=== PATIENT | male | born 1935 | race Caucasian/White ===

== ENCOUNTER 2018-10-29 08:45 | Observation (INO) ==
[2018-10-29] MEDS ORDERED: ASPIRIN PO ONE (08:49)
[2018-10-29 09:07] LABS: BASO# 0.03 X1000 (0.0-0.2); BASO% 0.3 % (0.0-0.8); EOS# 0.03 X1000 (0.0-0.7); EOS% 0.3 % (0.0-10.0); HEMATOCRIT 45.2 % (42.0-52.0); HEMOGLOBIN 15.2 g/dL (14.0-18.0); IMM GRAN# 0.02 X1000 (0.0-0.04); IMM GRAN% 0.2 % (0.0-0.5); LYMPH# 1.73 X1000 (1.2-3.4); MCH 30.3 PG (27-31); MCHC 33.6 g/dL (33-37); MONO# 0.88 X1000 (0.11-0.59); MONO% 8.1 % (1.7-9.3); MPV 11.9 FL (7.4-10.4); NEUT# 8.15 X1000 (1.4-6.5); NEUT% 75.1 % (42.2-75.2); PLT 159 X1000 (130-400); RBC 5.02 XMIL (4.7-6.1); RDW 13.9 % (11.5-14.5); WBC 10.84 X1000 (4.8-10.8)
[2018-10-29 09:24] LABS: ALBUMIN 4.4 g/dL (3.5-5.0); CALCIUM 8.7 mg/dL (8.8-10.2); CREATININE 1.2 mg/dL (0.7-1.2); POTASSIUM 4.5 mmol/L (3.5-5.1); TOTAL BILIRUBIN 1.6 mg/dL (0.20-1.00); TOTAL PROTEIN 6.6 g/dL (6.3-8.3)
[2018-10-29 09:25] LABS: INR 0.88; PROTIME 12.4 Seconds (11.0-16.0)
[2018-10-29 09:26] LABS: PTT 22.9 Seconds (22.3-41.8)
--- NOTE | 2018-10-29 09:57 | Diag Imaging Result Doc PS360 ---
EXAM: CHEST-2 VIEWS HISTORY: syncopy TECHNIQUE: PA and Lateral chest x-ray COMPARISON: None. FINDINGS: There is cardiomegaly. The pulmonary vasculature is not congested. No infiltrate, effusion, or pneumothorax is appreciated. There are moderate degenerative changes about the bilateral acromioclavicular joints. IMPRESSION: No acute cardiopulmonary abnormality is identified. Electronically signed by Valery Ramsey 10/29/2018 9:54 AM
[2018-10-29] MEDS ORDERED: CATAPRES PO ONE (10:23)
[2018-10-29] MEDS ORDERED: NORVASC PO ONE (10:23)
[2018-10-29] MEDS ORDERED: PRINIVIL PO ONE (10:24)
--- NOTE | 2018-10-29 10:31 | EKG Report ---
Test Performed on : 10/29/2018 08:47:31 AM Test Reason : syncopy Blood Pressure : / mmHG Vent. Rate : 059 BPM Atrial Rate : 059 BPM P-R Int : 208 ms QRS Dur : 084 ms QT Int : 420 ms P-R-T Axes : 062 -04 030 degrees QTc Int : 415 ms Sinus bradycardia. Left ventricular hypertrophy with repolarization abnormality Abnormal ECG No previous ECGs available Unconfirmed Result
--- NOTE | 2018-10-29 12:44 | Diag Imaging Result Doc PS360 ---
EXAM: CT ANGIOGRM PULMONARY ARTERIES HISTORY: chest pain TECHNIQUE: Images were obtained from the lung apices through bases as per standard protocol. This exam was performed using automated exposure control, adjustment of mA or kV according to patient size, and/or use of iterative reconstruction technique. COMPARISON: None. FINDINGS: Pulmonary artery: . Suboptimal distal arterial opacification. No proximal filling defects are appreciated. There is no evidence for acute pulmonary embolism embolism. Mediastinum: There is cardiomegaly. No pericardial effusion is appreciated. No pathologically enlarged lymph nodes are identified. No aortic aneurysm. There is no evidence for aortic dissection. No hilar lymphadenopathy. There are calcified left hilar lymph nodes Airway: No large airway obstruction. No focal mass. Pulmonary parenchyma: There are dependent changes. No masses are appreciated. No bronchiectasis. No focal infiltrates. Pleura: There are no pleural effusions. Bones: No fracture or destructive lesion is identified. There is degenerative arthropathy thoracic spine no acute fractures are identified. Images of the abdomen reveal a probable cortical cyst right kidney which is only partially visualized. IMPRESSION: No evidence for acute pulmonary embolism or other acute intrathoracic abnormality. Electronically signed by Valery Ramsey 10/29/2018 12:42 PM
[2018-10-29] MEDS ORDERED: NS 1,000 ML IV ONE ×2 (13:13→15:02)
--- NOTE | 2018-10-29 13:23 | EKG Report ---
Test Performed on : 10/29/2018 11:28:36 AM Test Reason : repeat Blood Pressure : / mmHG Vent. Rate : 068 BPM Atrial Rate : 068 BPM P-R Int : 198 ms QRS Dur : 084 ms QT Int : 396 ms P-R-T Axes : 094 -04 027 degrees QTc Int : 421 ms Normal sinus rhythm. Left ventricular hypertrophy with repolarization abnormality Cannot rule out Septal infarct , age undetermined Abnormal ECG When compared with ECG of 29-OCT-2018 08:47, (Unconfirmed) No significant change was found Unconfirmed Result
[2018-10-29] MEDS ORDERED: G.I. COCKTAIL PO ONE (14:36)
--- NOTE | 2018-10-29 14:58 | PROVIDER DOCUMENTATION ---
This chart was entered by Sabiha Dyson Scribe, acting as scribe for Cristóbal Tomlinson MD. HPI-Syncope/Dizziness - General Chief Complaint: Syncope Stated Complaint: syncope Time Seen by Provider: 10/29/18 10:08 Source: patient, family (daughter) Allergies/Adverse Reactions: Patient Allergies Allergy/AdvReac Type Severity Reaction Status Date / Time No Known Allergies Allergy Verified 10/29/18 08:53 Home Medications: Home Medication List Medication Instructions Recorded Confirmed Last Taken Type Amlodipine [Norvasc] 5 mg PO BID 10/29/18 10/29/18 10/28/18 08:00 History Aspirin [Adult Aspirin] 81 mg PO DAILY 10/29/18 10/29/18 10/28/18 History LISINOpril [Prinivil] 40 mg PO BID 10/29/18 10/29/18 10/28/18 08:00 History Metoprolol [Lopressor] 12.5 mg PO BID 10/29/18 10/29/18 10/28/18 History Simvastatin 40 mg PO DAILY 10/29/18 10/29/18 10/28/18 History - History of Present Illness-Syncope/Dizzy Nature of Presenting Problem: 83yom presents to ED by EMS cc syncope 2x this morning. 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 Pt reports having syncope 2x while in bathroom, with LOC but no injury. Pt reports he exercises regularly. Daughter is a t bedside and reports pt has had some sinus congestion recently and took quite a bit of antihistamine yesterday. Pt denies chest pain, nausea or abdominal pain. Pt has hx of HTN and 1 stent placement in 2009. Pt is nontoxic in appearance upon exam. If witnessed syncope, by whom?: EMS and Prior Episodes: reports: no prior history Onset/Duration: reports: just prior to arrival Timing: reports: resolved prior to arrival Position/Activity at time of episode: reports: sitting (on toilet) Symptoms prior to episode: reports: lightheaded, diaphoresis, other (diarrhea) Context: reports: lost consciousness Loss of Consciousness: unsure Location of injury. (If syncope resulted in an injury.): reports: none Current Symptoms: reports: weakness Recently Seen Here or By Another Healthcare Provider: No - Dizziness Severity in ED: reports: mild Dizziness Related Current/Associated Symptoms: reports: weakness, lightheaded Any recent trauma/injury?: reports: none Modifying Factors: improves with: nothing Patient usually:: reports: walks without assistance Review of Systems - Adult - REVIEW OF SYSTEMS - ADULT Constitutional: reports: see HPI, fatique. denies: chills, fever Eyes: reports: no symptoms reported Ears, Nose, Mouth & Throat: reports: see HPI, sinus problem Cardiovascular: reports: see HPI. denies: chest pain, palpitations Respiratory: reports: no symptoms reported Gastrointestinal: reports: see HPI, diarrhea. denies: abdominal pain, nausea, vomiting Genitourinary: reports: no symptoms reported Musculoskeletal: reports: no symptoms reported Integumentary: reports: no symptoms reported Neurological: reports: see HPI, dizziness/vertigo, syncope Psychiatric: reports: no symptoms reported Endocrine: reports: no symptoms reported Hematologic/Lymphatic: reports: no symptoms reported Allergic/Immunologic: reports: no symptoms reported All Other Systems: Reviewed and Negative Past History - Adult - PAST MEDICAL HISTORY-ADULT Review of Records: reports: Nursing Assessment Review, Medications Reviewed, Social history reviewed & non-contributory. Major Childhood Illnesses: reports: denies history Cardiovascular: reports: HTN Respiratory: reports: denies history Gastrointestinal: reports: denies history Obstetrical/Gynecological: reports: denies history Genitourinary: reports: denies history Musculoskeletal: reports: denies history Neurological: reports: denies history Endocrine/Immune: reports: denies history Other Conditions: reports: denies history - IMMUNIZATION STATUS Childhood Immunizations: See Nurse Assessment Flu Vaccine: See Nurse Assessment - FAMILY HISTORY Family History: reviewed, not pertinent - SOCIAL HISTORY Smoking: denies Physical Exam-General - PHYSICAL EXAM-ADULT Initial Vital Signs Reviewed: Yes - CONSTITUTIONAL General Appearance: appears well, alert, no apparent distress. negative: anxious, combative - EYES Eyes: PERRL/EOMI, pink conjunctivae. negative: photophobia - HEAD, EARS, NOSE, MOUTH & THROAT HENMT: normocephalic/atraumatic, moist mucous membranes. negative: angioedema - NECK Neck: non-tender, full range of motion, supple. negative: C-spine tenderness - RESPIRATORY Respiratory: chest non-tender, lungs clear, normal breath sounds. negative: w heezing - CARDIOVASCULAR Cardiovascular: normal peripheral pulses, no edema, bradycardia. negative: regular rate, rhythm, tachycardia - GASTROINTESTINAL (ABDOMEN) Abdominal Exam: normal bowel sounds, non tender, soft. negative: tenderness - MUSCULOSKELETAL Extremity: normal inspection. negative: deformity - SKIN Integumentary: normal color. negative: diaphoresis, ecchymosis - NEUROLOGIC Neurologic: grand scribe II-XII nml as tested, grossly normal. negative: facial droop, focal weakness, motor weakness, sensory deficit - PSYCHIATRIC Psych/Mental Status: normal mood/affect, oriented x 3. negative: anxious, disheveled Progress - PLAN OF CARE/RESULTS Progress/Plan/Lab Results: Vital Signs - 8 hr 10/29/18 08:40 10/29/18 10:37 10/29/18 11:51 Temperature 97.6 F Pulse Rate 62 63 67 Pulse Rate [Sitting] Pulse Rate [Standing] Pulse Rate [Supine] Respiratory Rate 19 14 19 Blood Pressure 173/81 171/77 181/69 Blood Pressure [Sitting] Blood Pressure [Standing] Blood Pressure [Supine] O2 Sat by Pulse Oximetry 97 98 97 10/29/18 13:11 Temperature Pulse Rate Pulse Rate [Sitting] 77 Pulse Rate [Standing] 101 H Pulse Rate [Supine] 71 Respiratory Rate Blood Pressure Blood Pressure [Sitting] 172/104 Blood Pressure [Standing] 110/51 Blood Pressure [Supine] 178/81 O2 Sat by Pulse Oximetry Laboratory Results - last 24 hr 10/29/18 10/29/18 10/29/18 09:00 09:00 09:00 WBC 10.84 H RBC 5.02 Hgb 15.2 Hct 45.2 MCV 90.0 MCH 30.3 MCHC 33.6 RDW Std Deviation 13.9 Plt Count 159 MPV 11.9 H Immature Gran % (Auto) 0.2 Neut % (Auto) 75.1 Lymph % (Auto) 16.0 L Morrow % (Auto) 8.1 Eos % (Auto) 0.3 Baso % (Auto) 0.3 Immature Gran # (Auto) 0.02 Neut # (Auto) 8.15 H Lymph # (Auto) 1.73 Morrow # (Auto) 0.88 H Eos # (Auto) 0.03 Baso # (Auto) 0.03 PT INR PTT (Actin FS) D-Dimer, Quantitative Sodium 140 Potassium 4.5 Chloride 105 Carbon Dioxide 22 L Anion Gap 13 BUN 17 Creatinine 1.2 Estimated GFR/1.73 m2 58 BUN/Creatinine Ratio 14 Glucose 157 H POC Glucose Calculated Osmolality 284 Calcium 8.7 L Total Bilirubin 1.60 H AST 17 ALT 13 Alkaline Phosphatase 56 Creatine Kinase 76 Troponin T Wvh-U-Poeogvwsmgg Pept 528 H Total Protein 6.6 Albumin 4.4 Globulin 2.0 Albumin/Globulin Ratio 2.0 TSH 10/29/18 10/29/18 10/29/18 09:00 09:00 09:00 WBC RBC Hgb Hct MCV MCH MCHC RDW Std Deviation Plt Count MPV Immature Gran % (Auto) Neut % (Auto) Lymph % (Auto) Morrow % (Auto) Eos % (Auto) Baso % (Auto) Immature Gran # (Auto) Neut # (Auto) Lymph # (Auto) Morrow # (Auto) Eos # (Auto) Baso # (Auto) PT 12.4 INR 0.88 PTT (Actin FS) 22.9 D-Dimer, Quantitative Sodium Potassium Chloride Carbon Dioxide Anion Gap BUN Creatinine Estimated GFR/1.73 m2 BUN/Creatinine Ratio Glucose POC Glucose Calculated Osmolality Calcium Total Bilirubin AST ALT Alkaline Phosphatase Creatine Kinase Troponin T < 0.010 Huz-T-Ttetiksqyyz Pept Total Protein Albumin Globulin Albumin/Globulin Ratio TSH 3.09 10/29/18 10/29/18 10/29/18 09:00 09:02 11:35 WBC RBC Hgb Hct MCV MCH MCHC RDW Std Deviation Plt Count MPV Immature Gran % (Auto) Neut % (Auto) Lymph % (Auto) Morrow % (Auto) Eos % (Auto) Baso % (Auto) Immature Gran # (Auto) Neut # (Auto) Lymph # (Auto) Morrow # (Auto) Eos # (Auto) Baso # (Auto) PT INR PTT (Actin FS) D-Dimer, Quantitative 2.10 H Sodium Potassium Chloride Carbon Dioxide Anion Gap BUN Creatinine Estimated GFR/1.73 m2 BUN/Creatinine Ratio Glucose POC Glucose 140 H Calculated Osmolality Calcium Total Bilirubin AST ALT Alkaline Phosphatase Creatine Kinase 72 Troponin T Foa-F-Eceisibvfmp Pept Total Protein Albumin Globulin Albumin/Globulin Ratio TSH 10/29/18 11:35 WBC RBC Hgb Hct MCV MCH MCHC RDW Std Deviation Plt Count MPV Immature Gran % (Auto) Neut % (Auto) Lymph % (Auto) Morrow % (Auto) Eos % (Auto) Baso % (Auto) Immature Gran # (Auto) Neut # (Auto) Lymph # (Auto) Morrow # (Auto) Eos # (Auto) Baso # (Auto) PT INR PTT (Actin FS) D-Dimer, Quantitative Sodium Potassium Chloride Carbon Dioxide Anion Gap BUN Creatinine Estimated GFR/1.73 m2 BUN/Creatinine Ratio Glucose POC Glucose Calculated Osmolality Calcium Total Bilirubin AST ALT Alkaline Phosphatase Creatine Kinase Troponin T < 0.010 Ppi-J-Lnauzhnjvoc Pept Total Protein Albumin Globulin Albumin/Globulin Ratio TSH Orders Category Date Time Status Cardiac Monitoring DIRECTED Care 10/29/18 08:49 Active Orthostatic Vital Signs NOW Care 10/29/18 12:59 Active Saline Loc NOW Care 10/29/18 08:49 Active CHEST-2 VIEWS [RAD] Stat Exams 10/29/18 08:[address] ANGIOGRM PULMONARY ARTERIES [CT] Stat Exams 10/29/18 11:05 Completed CBC WITH ELECTRONIC DIFF [HEME] Stat Lab 10/29/18 09:00 Completed CK PROFILE [SP CHEM] Stat Lab 10/29/18 09:00 Completed CK PROFILE [SP CHEM] Stat Lab 10/29/18 11:35 Completed COMPREHENSIVE METABOLIC PANEL [CHEM] Stat Lab 10/29/18 09:00 Completed D-DIMER [COAG] Stat Lab 10/29/18 09:00 Completed PRO B-NATRIURETIC PEPTIDE Stat Lab 10/29/18 09:00 Completed PROTIME WITH INR [COAG] Stat Lab 10/29/18 09:00 Completed PTT [COAG] Stat Lab 10/29/18 09:00 Completed TROPONIN T Stat Lab 10/29/18 09:00 Completed TROPONIN T Stat Lab 10/29/18 11:35 Completed TSH Stat Lab 10/29/18 09:00 Completed 0.9% Sodium Chloride Inj [Ns] 1,000 ml Med 10/29/18 13:13 Active IV 999 mls/hr Amlodipine [Norvasc] Med 10/29/18 10:23 Discontinued 5 mg PO NOW ONE Aspirin Med 10/29/18 08:49 Discontinued 325 mg PO NOW ONE Clonidine [Catapres] Med 10/29/18 10:23 Discontinued 0.1 mg PO NOW ONE LISINOpril [Prinivil] Med 10/29/18 10:24 Discontinued 20 mg PO NOW ONE CP/SOB/Palp >45 yrs of Age Stat Oth 10/29/18 08:49 Ordered EKG [EKG] Stat Ther 10/29/18 08:49 Draft EKG [EKG] Stat Ther 10/29/18 10:39 Ordered Transfer/Admit Order [TRANSFER] Routine Transfer 10/29/18 13:16 Ordered Result Diagrams: 10/29/18 09:00 10/29/18 09:00 - EKG 1 Time of EKG reading by physician:: 09:00 EKG Read and Signed by:: Cristóbal Tomlinson EKG Interpretation (*Must complete 3 of following elements*): Abnormal Rate: 59 Rhythm: sinus bradycardia Bullard: normal QRS: LVH (with repolarization abnormality) 2 Time of EKG reading by physician:: 11:41 EKG Read and Signed by:: Cristóbal Tomlinson EKG Interpretation (*Must complete 3 of following elements*): Abnormal (cannot rule septal infarct, age undetermined) Rate: 68 Rhythm: NSR QRS: LVH (with repolarization) ST Wave: normal Prior EKG Comparison: unchanged from prior - XRAY 1 XRAY: Bilateral XRAY Study: Chest Impression: See EMR Report (IMPRESSION: No acute cardiopulmonary abnormality is identified. Electronically signed by Valery BestVendorrocío 10/29/2018 9:54 AM) - CT/MRI 1 CT Study: other (pulmonary) Impression: See EMR Report (IMPRESSION: No evidence for acute pulmonary embolism or other acute intrathoracic abnormality. Electronically signed by Valery BestVendorrocío 10/29/2018 12:42 PM) - CONSULTS/PCP/HOSPITALIST Notification #1 *Consult/PCP/Hospitalist*: Dr. Scott Time Discussed: 10:43 Consult Disposition: other (wants me call back when all scans are back) #2 Consult: Dr. Scott Time Discussed: 13:21 Consult Disposition: other (accepted pt) Departure - Departure Date of Disposition Decision: 10/29/18 Time of Disposition Decision: 10:43 DIAGNOSIS: PVC (premature ventricular contraction) Syncope Qualifiers: Syncope type: vasovagal syncope Qualified Code(s): R55 - Syncope and collapse Hypertension Qualifiers: Hypertension type: unspecified Qualified Code(s): I10 - Essential (primary) hypertension Disposition: ADMITTED INPATIENT 09 Certified Medical Emergency: Emergent Condition: Stable Additional Freetext Instructions: ED Follow Up Instructions: You have been treated by a care provider in the Emergency Department. These instructions are being provided to you so you can have an understanding of how to care for yourself upon discharge. Upon discharge from the Emergency Department, you are responsible for making arrangements for follow-up care by a physician of your choice. Take all prescribed medications as directed. Return to the Emergency Department immediately for any new or worsening sympto ms. You may call the Physician Referral phone number at [phone] to obtain a list of Physicians who are taking new patients. Referrals and Follow-Ups: None,PCP [Primary Care Provider] - - Critical Care Note This patient required my direct & personal management of CC.: No Attestation - Physician/ ARIAN Attestation Patient care was provided by Advanced Practice Provider:: No The physician spent face to face time with patient:: Yes Advanced Practice Provider documentation review:: Supervising physician onsite a nd consulted in the evaluation and care of this patient. The physician did have a face to face encounter with the patient. This chart was documented by the indicated scribe, (Sabiha Dyson Scribe) and accurately reflects the services I performed and decisions made by me, Cristóbal Tomlinson MD, as attested by the provider's signature.
[2018-10-29] MEDS ORDERED: ZOFRAN IV PRN (15:02)
[2018-10-29] MEDS ORDERED: TYLENOL PO PRN (15:02)
--- NOTE | 2018-10-29 17:23 | Extremity Venous Study ---
EXAM: Carotid Ultrasound HISTORY: syncope TECHNIQUE: Grayscale, duplex, and color Doppler evaluation was performed of the carotid arteries bilaterally. Standard protocol. COMPARISON: None. FINDINGS: There is dense, bilateral, calcific atherosclerotic plaque. There is elevated velocity within the proximal right internal carotid artery demonstrated 230/18 cm/s. ICA/CCA ratio is 1.7. Findings are consistent with stenosis in the 50-69% range. Proximal left internal carotid artery velocity is 225/43 cm/s. Mid left internal carotid artery velocity is 201/43 cm/s. Left ICA/CCA ratio is 2.7. Findings are consistent with stenosis in the 50-69% range. Bilateral vertebral arterial flow is antegrade. IMPRESSION: Bilateral internal carotid artery stenosis left greater than right in the 50-69% range. Electronically signed by Valery Ramsey 10/29/2018 5:20 PM
--- NOTE | 2018-10-29 19:04 | HISTORY AND PHYSICAL ---
PRIMARY CARE PHYSICIAN: Dr. Shah. CHIEF COMPLAINT: Of feeling lightheaded, weak and diaphoretic and passed out 2 times at home prior to arriving to the emergency room. HISTORY OF PRESENTING ILLNESS: This is a 83-year-old male who is lying in the bed who is admitted to [facility] ER with complaints of feeling lightheaded, weak and diaphoretic. States he was in the bathroom and passed out twice. His workup on arrival had a blood pressure of 173/81. About 5 hours after arriving we did orthostatic blood pressures that showed lying 178/81, sitting 172/104, standing 110/51, heart rate went from lying of 71 sitting, 77 to 101 standing, laboratory data showed a D-dimer of 2.10. We did a pulmonary arteriogram that showed no evidence for an acute pulmonary emboli or other acute intrathoracic abnormality but he will be admitted to the medical unit for further evaluation and treatment. PAST MEDICAL HISTORY: Hypertension, hyperlipidemia, coronary artery disease. PAST SURGICAL HISTORY: Heart stent placement x1, of a 95% blockage of his LAD. FAMILY HISTORY: Of hypertension, cancer and CVA. SOCIAL HISTORY: Currently lives with family. Denies any tobacco, alcohol or illicit drug use. ALLERGIES: He has no known drug allergies. HOME MEDICATIONS: We will hold his Norvasc 5 mg p.o. b.i.d., lisinopril 40 mg p.o. b.i.d., metoprolol 12.5 mg p.o. b.i.d., will continue his aspirin 81 mg p.o. daily and simvastatin 40 mg p.o. daily. LABORATORY DATA: Showed a white blood cell count of 10.84, hemoglobin 15.2, hematocrit 45.2, platelets 159,000, PT and INR of 12.4 and 0.88 with a D-dimer of 2.10. Sodium 140, potassium 4.5, chloride 105, CO2 22, BUN of 17, creatinine 1.2, glucose 157. Cardiac enzyme x2 sets were negative. ProBNP of 528. TSH of 3.09. Chest x-ray showed no acute cardiopulmonary abnormality identified. Pulmonary arteriogram showed no evidence for an acute pulmonary embolism or other acute intrathoracic abnormality. REVIEW OF SYSTEMS: He denied any fever, chills, blurred vision. He did have some lightheadedness, dizziness, weakness, diaphoresis. Denied chest pain, coughing, shortness of breath, abdominal pain, constipation, diarrhea, burning or hurting with urination. PHYSICAL EXAMINATION: On arrival he had a temperature of 97.6 degrees, pulse 62, respirations 19, blood pressure 173/81 and was saturating 97% on room air. He did receive Norvasc 5 mg p.o. x1, clonidine 0.1 mg p.o. x1, lisinopril 20 mg p.o. x1. We checked orthostatics after receiving that approximately 3 hours after receiving the medication he had a lying blood pressure of 178/81 with a pulse of 71, sitting 172/104 with a pulse of 77 and standing 110/51 with a pulse of 101. GENERAL: This is an 83-year-old male who is lying in the bed. Answers questions appropriately. HEENT: Normocephalic, atraumatic. Normal ENT inspection. Oropharynx and nares are clear. Pupils are equal, round, and reactive to light and accommodation. Extraocular movements are intact. NECK: Normal inspection, normal range of motion. LUNGS: Clear to auscultation bilaterally with equal lung expansion and chest wall movement. HEART: With regular rate and rhythm. No murmurs, rubs, or gallops. ABDOMEN: Soft, nontender, nondistended. Bowel sounds are present x4 quadrants. MUSCULOSKELETAL: He has 5/5 strength x4 extremities. NEUROLOGICAL: The cranial nerves 2-12 are grossly intact. ASSESSMENT: 1. Syncope. 2. Orthostatic hypotension. 3. An elevated D-dimer. PLAN: He will be admitted to the medical unit, placed on telemetry, neuro checks q.4 hours for 24 hours, normal saline at 125 mL an hour. Check an echocardiogram, carotid Doppler. Continue his home medicines as previously identified and further orders after seen by attending. Dictated by RATNA Benites for John Scott MD cc: MD John Lind MD
[2018-10-29 21:42] LABS: C DIFF TOXIN PL NEGATIVE (NEGATIVE); OCCULT BLOOD 1 NEGATIVE (NEGATIVE)
--- NOTE | 2018-10-29 22:11 | PROGRESS NOTE ---
DATE: 10/29/2018 ADDENDUM: Briefly, the patient came in with abnormal syncope. He reports that he began having diarrhea starting this morning, and passed out twice. He has had diarrhea since he has been put in the hospital, although testing so far has been negative. He has cardiomegaly, but otherwise negative, so I am not entirely sure this is not diarrhea-related syncope or a post-vagal kind of process. He was given several antihypertensives, and then orthostatic blood pressures were checked, and they were low. It is difficult to interpret that information because he was hypertensive the night he was orthostatic/hypotensive, so unclear. It may also just be dehydration, but he was placed on observation for dizziness. We will continue gentle hydration and see how he does. This is a [id number] encounter note with Liat Banegas. cc: John Scott MD
[2018-10-29] MEDS: PRILOSEC PO SCH (23:47)
[2018-10-30] MEDS: PRILOSEC PO SCH (06:21)
[2018-10-30] MEDS ORDERED: ZOCOR PO SCH (09:00)
[2018-10-30] MEDS: ASPIRIN EC PO SCH (09:51)
[2018-10-30] MEDS: NORVASC PO SCH ×2 (14:39→21:37)
[2018-10-30] MEDS: CATAPRES PO SCH (14:39)
[2018-10-30 14:46] LABS: BASO# 0.03 X1000 (0.0-0.2); BASO% 0.3 % (0.0-0.8); EOS% 2.2 % (0.0-10.0); HEMATOCRIT 43.9 % (42.0-52.0); HEMOGLOBIN 14.5 g/dL (14.0-18.0); IMM GRAN# 0.02 X1000 (0.0-0.04); IMM GRAN% 0.2 % (0.0-0.5); LYMPH# 2.14 X1000 (1.2-3.4); LYMPH% 23.8 % (20.5-51.1); MCV 90.7 FL (81-99); MONO% 11.1 % (1.7-9.3); MPV 11.9 FL (7.4-10.4); NEUT# 5.61 X1000 (1.4-6.5); NEUT% 62.4 % (42.2-75.2); PLT 147 X1000 (130-400); RBC 4.84 XMIL (4.7-6.1)
[2018-10-30 15:13] LABS: AGAP 10; ALBUMIN 3.9 g/dL (3.5-5.0); ALKALINE PHOSPHATASE 51 U/L (32-122); BUN 16 mg/dL (8-22); CALCIUM 8.4 mg/dL (8.8-10.2); CHLORIDE 108 mmol/L (98-107); COSMO 280; CREATININE 1.1 mg/dL (0.7-1.2); ESTIMATED GFR > 60; GLUCOSE 116 mg/dL (70-104); GOT 16 U/L (10-34); GPT 8 U/L (10-44); POTASSIUM 4.5 mmol/L (3.5-5.1); SODIUM 139 mmol/L (136-145); TCO2 21 mmol/L (25-35); TOTAL PROTEIN 6.6 g/dL (6.3-8.3)
--- NOTE | 2018-10-30 15:16 | PROGRESS NOTE ---
DATE: 10/30/2018 SUBJECTIVE: Patient has no major complaints. He feels a lot better. Diarrhea is improving. OBJECTIVE: Vital Signs: Blood pressure 178/70, heart rate 63, respiratory rate 18, temperature 98.3 degrees, 100% on room air. Cardiovascular: Regular rate and rhythm. Pulmonary: Bilateral breath sounds clear to auscultation. GI: Soft, nontender, nondistended. Bowel sounds are positive. LABORATORY DATA: I do not have any data today. Troponin was negative, though. PROBLEM LIST: 1. Syncope, unclear etiology. I am suspicious this was dehydration. He was orthostatic. Echo is still pending. Carotid did show carotid stenosis bilaterally, so he will need vascular follow-up. 2. Carotid stenosis. He is on aspirin and we will adjust his statin to Lipitor for improved control. 3. Hypertension. We will resume his regular medications. 4. Enteritis seems better. DISPOSITION: Anticipate home soon but I am waiting on echocardiogram report and we will go from there. cc: John Scott MD
[2018-10-30] MEDS ORDERED: LIPITOR PO SCH (21:00)
[2018-10-30] MEDS: PRINIVIL PO SCH (21:37)
[2018-10-31] MEDS: PRILOSEC PO SCH (06:12)
[2018-10-31] MEDS: CATAPRES PO SCH (08:10)
[2018-10-31] MEDS: ASPIRIN EC PO SCH (08:10)
[2018-10-31] MEDS: PRINIVIL PO SCH (08:10)
[2018-10-31] MEDS: NORVASC PO SCH (08:10)
[2018-10-31 11:30] VITALS: BP 145/62
--- NOTE | 2018-10-31 12:46 | ECHO REPORT ---
ORDER DATE: 10/29/2018 INTERPRETING PHYSICIAN: Dr. Jason York. ECHOCARDIOGRAPHIC MEASUREMENTS: 1. Interventricular septum 1.4 2. Left ventricular posterior wall 1.4. 3. Diastolic diameter 4.1. 4. Left ventricular systolic diameter 2.8. 5. Left atrium 4.6. 6. Aorta 3. SUMMARY OF THE 2-DIMENSIONAL IMAGIN. Aortic valve leaflets are trileaflet. 2. Pulmonic valve was normal. 3. Tricuspid valve was normal. 4. Mitral valve leaflets revealed mild TERESA 5. There is left atrial enlargement. 6. Normal left ventricular cavity size. Concentric left ventricular hypertrophy. Estimated ejection fraction of 65% to 70%. There is diastolic dysfunction. 7. There is mild mitral regurgitation. 8. There is no aortic stenosis. There is trace aortic regurgitation. 9. Mild tricuspid regurgitation. Peak velocity across the tricuspid valve was 3 m/sec. 10. Pulmonary artery systolic pressure of 50 mmHg. 11. There is no pericardial effusion or obvious intracardiac mass or thrombus seen. cc: MD Liat Flores CRNP MTDD
--- NOTE | 2018-10-31 14:23 | DISCHARGE SUMMARY ---
ADMISSION DATE: 10/29/2018 DISCHARGE DATE: 10/31/2018 He is doing well. Diarrhea has stopped. He is looking well. No major complaints. He will be discharged in stable condition. He has not had any further diarrhea, hypotension. His echocardiogram looked okay, EF 65. Valves look okay. A little bit of left ventricular hypertrophy. So patient was discharged on his regular medications. The only change I made in his medicines was his Lipitor which was changed to Lipitor from simvastatin because of the bilateral carotid stenosis. He will need to follow up with Dr. Lobo in a couple weeks just to monitor and set up follow-up for that and follow up with Dr. Shah in 1 week just to check his blood pressure and monitor him. cc: John Scott MD
== END 2018-10-31 15:01 | disposition home or self-care (01) ==
LOC: P.ED 08:45 → P.MEDSURG 08:45
PROVIDERS: ATTEND Internal Medicine